=== PATIENT | male | born 2000 | race African-American/Black ===

== ENCOUNTER 2022-01-29 17:21 | Emergency (ER) | payer OTHER ==
[~2022-01-29] VITALS: Ht 175.3 cm; Wt 68.2 kg
[2022-01-29 20:05] LABS: BASO % 0.4 % (0.0-1.0); EOS # 0.2 10^3/uL (0.0-0.5); EOS % 2.1 % (0.0-3.0); HEMATOCRIT 46.3 % (42.0-52.0); LYMPH # 1.9 10^3/uL (1.5-5.0); LYMPH % 24.1 % (24.0-44.0); MEAN CORPUSCULAR HGB CONC 32.4 g/dl (32.0-36.5); MEAN CORPUSCULAR VOLUME 89.4 fl (80.0-96.0); MONO # 0.7 10^3/uL (0.0-0.8); MONO % 9.1 % (2.0-8.0); NEUTROPHILS # 5.2 10^3/uL (1.5-8.5); NEUTROPHILS % 64.1 % (36.0-66.0); PLATELET COUNT, AUTOMATED 266 10^3/uL (150-450); RED BLOOD COUNT 5.18 10^6/uL (4.30-6.10)
[2022-01-29 20:17] LABS: INR 0.94; PROTHROMBIN TIME 12.8 SECONDS (12.5-14.5)
[2022-01-29 20:24] LABS: CK-MB VALUE MASS < 1.0 NG/ML (<3.6)
[2022-01-29 20:25] LABS: LIPASE 25 U/L (12-53)
[2022-01-29 20:27] LABS: BILIRUBIN,DIRECT 0.1 MG/DL (<0.4)
[2022-01-29 20:31] LABS: ALBUMIN 4.1 G/DL (3.2-5.2); ALKALINE PHOSPHATASE 82 U/L (46-116); ALT/SGPT 24 U/L (7.0-40); AST/SGOT 26 U/L (<34); BILIRUBIN,TOTAL 0.4 MG/DL (0.3-1.2); BLOOD UREA NITROGEN 17 MG/DL (9-23); CALCIUM LEVEL 9.6 MG/DL (8.5-10.1); CARBON DIOXIDE LEVEL 28 MMOL/L (20-31); CHLORIDE LEVEL 103 MMOL/L (98-107); CPK CREATINE PHOSPHOKINASE 217 U/L (46-171); CREATININE FOR GFR 0.95 MG/DL (0.70-1.30); GLOMERULAR FILTRATION RATE > 60.0 (>60); GLUCOSE, FASTING 89 MG/DL (60-100); MB/CK RELATIVE INDEX 0.46 (< OR =4); POTASSIUM SERUM 4.1 MMOL/L (3.5-5.1); SODIUM LEVEL 138 MMOL/L (136-145); TOTAL PROTEIN 7.9 G/DL (5.7-8.2)
[2022-01-29 21:25] VITALS: BP 128/72
== END 2022-01-29 21:30 | disposition home or self-care (01) ==
LOC: M ED 17:21
DX: R07.9 Chest pain, unspecified (principal); I45.19 Other right bundle-branch block

== ENCOUNTER 2022-01-31 14:36 | Emergency (ER) | payer OTHER ==
[~2022-01-31] VITALS: Ht 175.3 cm; Wt 68.0 kg
[2022-01-31] MEDS ORDERED: ACETAMINOPHEN TAB 650MG DOSE (2X325MG) PO ONE (15:25)
[2022-01-31 16:04] LABS: BASO % 0.2 % (0.0-1.0); EOS % 0.1 % (0.0-3.0); HEMATOCRIT 44.6 % (42.0-52.0); LYMPH # 0.6 10^3/uL (1.5-5.0); MEAN CORPUSCULAR HEMOGLOBIN 29.5 pg (27.0-33.0); MEAN CORPUSCULAR HGB CONC 33.6 g/dl (32.0-36.5); MEAN CORPUSCULAR VOLUME 87.6 fl (80.0-96.0); MONO # 1.2 10^3/uL (0.0-0.8); MONO % 8.3 % (2.0-8.0); NEUTROPHILS # 12.8 10^3/uL (1.5-8.5); NEUTROPHILS % 86.9 % (36.0-66.0); PLATELET COUNT, AUTOMATED 256 10^3/uL (150-450); RED BLOOD COUNT 5.09 10^6/uL (4.30-6.10); WHITE BLOOD COUNT 14.7 10^3/uL (4.0-10.0)
[2022-01-31 16:37] LABS: LIPASE 26 U/L (12-53)
[2022-01-31 16:38] LABS: ALBUMIN 4.1 G/DL (3.2-5.2); ALKALINE PHOSPHATASE 79 U/L (46-116); ALT/SGPT 20 U/L (7.0-40); AST/SGOT 23 U/L (<34); BILIRUBIN,DIRECT 0.1 MG/DL (<0.4); BILIRUBIN,TOTAL 0.4 MG/DL (0.3-1.2); BLOOD UREA NITROGEN 18 MG/DL (9-23); CALCIUM LEVEL 9.5 MG/DL (8.5-10.1); CARBON DIOXIDE LEVEL 29 MMOL/L (20-31); CHLORIDE LEVEL 102 MMOL/L (98-107); CK-MB VALUE MASS < 1.0 NG/ML (<3.6); CREATININE FOR GFR 1.16 MG/DL (0.70-1.30); GLOMERULAR FILTRATION RATE > 60.0 (>60); GLUCOSE, FASTING 101 MG/DL (60-100); POTASSIUM SERUM 4.1 MMOL/L (3.5-5.1); SODIUM LEVEL 138 MMOL/L (136-145); TOTAL PROTEIN 7.7 G/DL (5.7-8.2)
[2022-01-31 16:39] LABS: THYROID STIMULATING HORMONE 0.449 uIU/ML (0.55-4.78)
[2022-01-31 16:40] LABS: FREE T4 1.07 NG/DL (0.89-1.76)
[2022-01-31 16:43] LABS: CPK CREATINE PHOSPHOKINASE 229 U/L (46-171); MB/CK RELATIVE INDEX 0.43 (< OR =4)
[2022-01-31 18:03] LABS: CK-MB VALUE MASS < 1.0 NG/ML (<3.6)
[2022-01-31 18:04] LABS: CPK CREATINE PHOSPHOKINASE 220 U/L (46-171); MB/CK RELATIVE INDEX 0.45 (< OR =4)
[2022-01-31 19:30] LABS: CK-MB VALUE MASS < 1.0 NG/ML (<3.6)
[2022-01-31 19:31] LABS: CPK CREATINE PHOSPHOKINASE 223 U/L (46-171); MB/CK RELATIVE INDEX 0.44 (< OR =4)
[2022-01-31 21:04] VITALS: BP 143/65
== END 2022-01-31 21:05 | disposition home or self-care (01) ==
LOC: M ED 14:36 → EDBD 14:36 → M ED 21:05
DX: R07.9 Chest pain, unspecified (principal)

== ENCOUNTER → 2023-08-01 | Outpatient (REF) | LOC: M PLAIMG 11:41 | PROVIDERS: ATTEND Internal Medicine | DX: R52 Pain, unspecified (principal) ==